=== PATIENT | male | born 1995 | race Caucasian/White ===

== ENCOUNTER 2019-11-22 21:23 | Emergency (ER) | payer OTHER, BC, MEDICAID ==
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
[2019-11-22] MEDS ORDERED: Acetaminophen/HYDROcodone 325-10 MG Tab PO ONE (22:40)
== END 2019-11-22 23:04 | disposition home or self-care (01) ==
LOC: DL.ED 21:23
DX: S91.201A Unspecified open wound of right great toe with damage to nail, initial encounter (principal); Z88.1 Allergy status to other antibiotic agents; W23.0XXA Caught, crushed, jammed, or pinched between moving objects, initial encounter
CPT/HCPCS: 73630; 99283; A9270